=== PATIENT | female | born 1990 | race Caucasian/White ===

== ENCOUNTER 2017-08-22 17:16 | Emergency (ER) | payer SELFPAY ==
[2017-08-22 17:22] VITALS: BMI 31.8
--- NOTE | 2017-08-22 17:46 | DR.GENAD ---
HPI - PCP Primary Care Physician: nfd - Complaint/Symptoms Chief Complaint Doctors Comments: Patient presents with a two weeks history of nausea and vomiting s/p eating associated with RUQ pain. She denies fever. Chief Complaint:: patient stated for the past 2 weeks everything she eats makes her have lower right abd pain and very nauseated. - Source History Provided: Patient - Mode of Arrival Mode of Arrival: Ambulatory - Timing Onset of Chief Complaint: 08/08/17 PMH - PMH Past Medical History: No Past Surgical History: Yes Surgical History: - Family History History of Family Medical Conditions: Yes Family Medical History: Diabetes Mellitus, Cancer, [place], Hypertension - Social History Does patient currently use any type of tobacco product: Yes Have you used tobacco products in the last 12 months: Yes Type of Tobacco Use: Cigarettes How many years tobacco product used: 8 Does any household member use tobacco: No Alcohol Use: Occasionally Do you use any recreational Drugs:: No Lives With: Family Lives Where: Home - infectious screening In the last 2 months have you had wt loss of >10#?: NO Have you had fever, night sweats or hemotysis?: No Have you traveled outside the country in the last 6 months?: No Isolation: Standard ROS - Review of Systems Eyes: No Symptoms Reported ENTM: No Symptoms Reported Respiratoy: No Symptoms Reported Cardiovascular: No Symptoms Reported Gastrointestinal/Abdominal: Abdominal Pain, Nausea, Vomiting Genitourinary: No Symptoms Reported Neurological: No Symptoms Reported Musculoskeletal: No Symptoms Reported Integumentary: No Symptoms Reported Hematologic/Lymphatic: No Symptoms Reported Endocrine: No Symptoms Reported Psychiatric: No Symptoms Reported All Other Systems: Reviewed and Negative PE - Vital Signs Vitals: Temperature 99.9 F Pulse Rate 86 Respiratory Rate 18 Blood Pressure 125/69 O2 Sat by Pulse Oximetry 99 - General Limitations: No Limitations General Appearance: Alert, In No Apparent Distress - Head Head Exam: Normal Inspection, Atraumatic - Eyes Eye exam: Normal Appearance, PERRL, EOMI - ENT ENT Exam: Normal Exam External Ear Exam: Normal External Inspection TM/Canal Exam: Bilateral Normal Nose Exam: Normal Nose Exam, Sinus Tenderness Mouth Exam: Normal Inspection Throat Exam: Normal Inspection - Neck Neck Exam: Normal Inspection, Full ROM - Chest Chest Inspection: Normal Inspection, Symmetric Chest Wall Rise - Respiratory Respiratory Exam: Normal Lung Sounds Bilat Respiratory Exam: Bilateral Clear to Auscultation - Cardiovascular Cardiovascular Exam: Regular Rate, Normal Rhythm - Abdominal Exam Abdominal Exam: Normal Inspection Abdominal Tenderness: negative: RUQ, RLQ, LUQ, LLQ, Epigastrium, Suprapubic, Diffuse, Mild, Moderate, Severe, Other - Extremities Extremities Exam: Normal Inspection - Back Back Exam: Normal Inspection - Neurologic Neurological Exam: Alert, Oriented X3, CN II-XII Intact - Psychiatric Psychiatric Exam: Normal Affect - Skin Skin Exam: Warm, Dry, Intact Course - Reevaluation 1st: Unchanged ROR - Labs Reviewed Result Diagrams: 08/22/17 18:00 08/22/17 18:00 Laboratory: WBC 7.3 X10^3/uL (3.6-10.0) 08/22/17 18:00 RBC 4.51 X10^6/uL (3.5-5.4) 08/22/17 18:00 Hgb 13.4 g/dL (12.0-16.0) 08/22/17 18:00 Hct 38.1 % (36.0-47.0) 08/22/17 18:00 MCV 84.5 fL (80.0-100.0) 08/22/17 18:00 MCH 29.7 pg (27.0-34.0) 08/22/17 18:00 MCHC 35.2 g/dL (33.0-35.0) H 08/22/17 18:00 RDW 14.9 % (11.6-16.5) 08/22/17 18:00 Plt Count 240 X10^3/uL (150.0-450.0) 08/22/17 18:00 MPV 9.2 fL (7.4-11.0) 08/22/17 18:00 Neut % 54.7 % (42.0-75.0) 08/22/17 18:00 Lymph % 36.2 % (21.0-51.0) 08/22/17 18:00 [place] % 4.7 % (0.0-13.0) 08/22/17 18:00 Eos % 3.1 % (0.9-2.9) H 08/22/17 18:00 Baso % 1.3 % (0.2-1.0) H 08/22/17 18:00 Neut # 4.0 x10^3/uL (2.2-4.8) 08/22/17 18:00 Lymph # 2.6 X10^3/uL (1.3-2.9) 08/22/17 18:00 [place] # 0.3 x10^3/uL (0.3-0.8) 08/22/17 18:00 Eos # 0.2 x10^3/uL (0.0-0.2) 08/22/17 18:00 Baso # 0.1 X10^3/uL (0.0-0.1) 08/22/17 18:00 Absolute Nucleated RBC 0.0 /100WBC 08/22/17 18:00 Sodium 139 mmol/L (136-145) 08/22/17 18:00 Corrected Sodium TNP 08/22/17 18:00 Potassium 3.3 mmol/L (3.5-5.1) L 08/22/17 18:00 Chloride 105 mmol/L (98-107) 08/22/17 18:00 Carbon Dioxide 28.0 mmol/L (21-32) 08/22/17 18:00 BUN 7 mg/dL (7-18) 08/22/17 18:00 Creatinine 0.61 mg/dL (0.55-1.02) 08/22/17 18:00 Est GFR (MDRD) Af Amer > 60 (>60) 08/22/17 18:00 Est GFR (MDRD) Non-Af > 60 (>60) 08/22/17 18:00 Glucose 97 mg/dL (65-99) 08/22/17 18:00 Calcium 8.5 mg/dL (8.5-10.1) 08/22/17 18:00 Corrected Calcium TNP 08/22/17 18:00 Total Bilirubin 0.30 mg/dL (0.2-1.0) 08/22/17 18:00 AST 35 Units/L (15-37) 08/22/17 18:00 ALT 53 Units/L (12-78) 08/22/17 18:00 Alkaline Phosphatase 95 Units/L (46-116) 08/22/17 18:00 C-Reactive Protein 14.80 mg/L (0-3.0) H 08/22/17 18:00 Total Protein 7.4 g/dL (6.4-8.2) 08/22/17 18:00 Albumin 3.6 g/dL (3.4-5.0) 08/22/17 18:00 Globulin 3.8 g/dL (2.5-4.5) 08/22/17 18:00 Albumin/Globulin Ratio 0.9 Ratio (1.1-2.1) L 08/22/17 18:00 - XRAY XRAY Interpreted by: Radiologist (CT Abd/Pel: The lung bases are clear. Given limitations of a noncontrast examination no focal hepatic lesion is identified. Gallbladder is nondistended. No cholelithiasis. Bile ducts are normal in caliber. The spleen, pancreas and adrenal glands are normal. Neither kidney demonstrates evidence of mass, hydronephrosis or definite nephrolithiasis given the limited evaluation secondary to contrast excretiobn within the renal collecting system. Upper GI tract demonstrates no evidence of mass or obstruction. Urinary bladder is unremarkable. k Suspected small cyst within both adnexa, likely physiologic. No discrete pelvic mass. The rectum and colon are normal. The appendix is within normal limits. No adenopathy identified within the abdomen or pelvis. Abdominal aorta is normal in caliber. Review of bone windows demonstrated no acute osseous abnormality.. Impression: No acute inflammatory process identified within the abdomen or pelvis. Specificalyy, the appendix is normal. Suspected small bilateral adnexal cysts likely representing physiologic ovarian follicles.) - Diagnosis Discharge Problem: Adrenal cyst - Discharge Plan Condition: Stable - Follow ups/Referrals Follow ups/Referrals: NFD,None [Primary Care Provider] - 3 days - Instructions
[2017-08-22 18:10] LABS: BASOPHILS # (AUTO) 0.1 X10^3/uL (0.0-0.1); BASOPHILS % (AUTO) 1.3 % (0.2-1.0); EOSINOPHILS # (AUTO) 0.2 x10^3/uL (0.0-0.2); EOSINOPHILS % (AUTO) 3.1 % (0.9-2.9); HEMATOCRIT 38.1 % (36.0-47.0); HEMOGLOBIN 13.4 g/dL (12.0-16.0); LYMPHOCYTES # (AUTO) 2.6 X10^3/uL (1.3-2.9); LYMPHOCYTES % (AUTO) 36.2 % (21.0-51.0); MEAN CORPUSCULAR HEMOGLOBIN 29.7 pg (27.0-34.0); MEAN CORPUSCULAR HGB CONC 35.2 g/dL (33.0-35.0); MEAN CORPUSCULAR VOLUME 84.5 fL (80.0-100.0); MEAN PLATELET VOLUME 9.2 fL (7.4-11.0); MONOCYTES # (AUTO) 0.3 x10^3/uL (0.3-0.8); MONOCYTES % (AUTO) 4.7 % (0.0-13.0); NEUTROPHILS % (AUTO) 54.7 % (42.0-75.0); PLATELET COUNT 240 X10^3/uL (150.0-450.0); RED BLOOD COUNT 4.51 X10^6/uL (3.5-5.4); RED CELL DISTRIBUTION WIDTH 14.9 % (11.6-16.5); WHITE BLOOD COUNT 7.3 X10^3/uL (3.6-10.0)
[2017-08-22 18:27] LABS: ALANINE AMINOTRANSFERASE 53 Units/L (12-78); ALBUMIN 3.6 g/dL (3.4-5.0); ALKALINE PHOSPHATASE 95 Units/L (46-116); ASPARTATE AMINO TRANSFERASE 35 Units/L (15-37); BLOOD UREA NITROGEN 7 mg/dL (7-18); CALCIUM 8.5 mg/dL (8.5-10.1); CHLORIDE 105 mmol/L (98-107); CREATININE 0.61 mg/dL (0.55-1.02); SODIUM 139 mmol/L (136-145); TOTAL PROTEIN 7.4 g/dL (6.4-8.2); eGFR BLACK RACES > 60 (>60); eGFR NON BLACK RACES > 60 (>60)
[2017-08-22] MEDS ORDERED: NS 100 ML IV 100 ML IV ONE (20:15)
--- NOTE | 2017-08-22 20:56 | CT ---
CT abdomen and pelvis with contrast Indication: Right lower quadrant pain Comparison: None available Technique: Multiple axial images of the abdomen and pelvis were obtained from the lung bases to the pubic symphy sis after the administration of IV contrast. Findings: The lung bases are clear. Given limitations of a noncontrast examination no focal hepatic lesion is i dentified. Gallbladder is nondistended. No cholelithiasis. Bile ducts are normal in caliber. The sple en, pancreas and adrenal glands are normal. Neither kidney demonstrates evidence of mass, hydronephro sis or definite nephrolithiasis given the limited evaluation secondary to contrast excretion within t he renal collecting system. Upper GI tract demonstrates no evidence of mass or obstruction. Urinary b ladder is unremarkable. Suspected small cyst within both adnexa, likely physiologic. No discrete pelv ic mass. The rectum and colon are normal. The appendix is within normal limits. No adenopathy identif ied within the abdomen or pelvis. Abdominal aorta is normal in caliber. Review of bone windows demons trates no acute osseous abnormality. Impression: 1.No acute inflammatory process identified within the abdomen or pelvis. Specifically, the appendix i s normal. 2. Suspected small bilateral adnexal cysts likely representing physiologic ovarian follicles. This ca n be a source of patient's pain and clinical correlation is needed. Reported By:
[2017-08-22 21:34] VITALS: BP 110/70
== END 2017-08-22 21:34 | disposition home or self-care (01) ==
LOC: ER 17:30
DX: E27.8 Other specified disorders of adrenal gland (principal)
CPT/HCPCS: 36415; 74177; 80053; 85025; 86140; 96365; 99283; A4222